=== PATIENT | female | born 1950 | race Caucasian/White ===

== ENCOUNTER 2024-10-24 11:05 | Outpatient (AMB) | payer MEDICARE, SELFPAY ==
--- NOTE | 2024-10-24 11:06 | A.OFFPC_ITS ---
Vital Signs 10/24/24 11:17 10/24/24 11:41 Height 5 ft 5 in Weight 163 lb BMI 27.1 BP 143/70 H 120/66 Blood Pressure Location Rt brachial Rt brachial Position Sitting Sitting Respiration 16 Pulse 88 Pulse Source Pulse Oximeter Temp 98.0 F Temp Source Oral Pulse Oximetry (%) 98 Oxygen Delivery Method Room Air Intake Visit Reasons: Est. Care Intake Note: patient here for new patient visit Turkish Rubber Required: No Is last menstrual period known: No Post menopausal: No Patient : No Allergies No Known Allergies Allergy (Verified 10/24/24 11:33) Medication List - Last Reconciled 10/24/24 by Miles Vigil CNP amlodipine 10 mg PO DAILY levothyroxine 100 mcg PO DAILY lisinopril 20 mg PO DAILY Tobacco use date assessed: 10/24/24 Fall risk assessment: No Falls in past year Last assessed Fall Risk: 10/24/24 Dental Screening Dental Screen Date: 10/24/24 Did you have a dental visit in the last 12 months?: Yes Did you have a dental problem in the last 6 months where you did not have access to dental care?: No Was dental information given to patient?: Patient has dentist HPI HPI Comments History of Present Illness Details 74-year-old female presents to [facility]. Relocated to [facility] from [place] in 04/23/2024. Prior PCP? - Yesy Torres [place] Last office visit/CPE/labs - 03/2024 Acute issue(s) - Hypertension: She is on amlodipine 10 mg daily and lisinopril 20 mg daily. - Hypothyroidism: She is on levothyroxi ne 100 mcg daily. - Vitamin B 12 deficiency: She is on a l ow dose otc vitamin B 12 supplement. - OA both knees: Reports occasional stif fness to both knees upon waking up in the morning and improves during the day. She also experiences occasional right knee pain. - Heart murmur: She was followed by Car diology until she moved out to [place] over 10 years ago. Declines cardiology referral at this time. - Presbyopia: She ears bifocal glasses Past Medical History - Hypertension, hypothyroidism, heart mu rmur, fatty liver, osteoarthritis both knees, presbyopia, leukopenia (white count of 3 or below), vitamin B 12 deficiency Surgical History - Appendectomy Family History - Dad: Hyperlipidemia - MGM: Hyperlipidemia, diabetes Social History - Nonsmoker. Does not vape. Does not dri nk alcohol. Denies recreational drug use - Has been making healthy dietary choice s. Walks routinely. Generally sleep well Health maintenance - Last eye exam was a year ago in [place]. Re ferred to Ophthalmology for routine eye care - Last dental visit was in 03/2024 - Last tetanus vaccine was more than 10 years ago; received Tdap vaccine today - She notes that she is up-to-date on shingles vaccines. Immunization record not available. She will obtain her immunization record from [facility] for her PCP to review - She is unsure whether she was vaccinat ed for pneumonia. Will review her immunization record when available - She notes that she is vaccinated for t he flu - Last pap smear test was over 10 years ago: normal. She no longer performs pap smear test - Last mammogram was a year and half ago : normal. Mammogram ordered - Last colonoscopy was over 10 years ago : normal. She no longer performs colonoscopy and has been doing Cologuard test instead. Last Cologuard test was a year and half ago: normal. Will review record once available - Last dexa scan was almost a year ago: normal. Will review her record once available [facility] Medical History (Updated 10/24/24 @ 12:25 by Miles Vigil CNP) Fatty liver Arthritis of both knees H/O thyroid disease High blood pressure Surgical History (Updated 10/24/24 @ 12:29 by Miles Vigil CNP) History of appendectomy Family History (Updated 10/24/24 @ 11:25 by Alexus Mejia MA) Father High cholesterol Mother High cholesterol Diabetes Social History Housing: House Patient Tobacco Use Status: Never used Tobacco e-Cigarette/Vaping Use: Never Used Second Hand Smoke Exposure: No service: No Current occupational status: retired Current occupational exposures/hazards: No Cognitive needs: No Hearing needs: No Vision needs: Yes Questionnaire PHQ-9 Over the last 2 weeks, how often have you been bothered by any of the following problems? 1. Little interest or pleasure in doing things: not at all 2. Feeling down, depressed, or hopeless: not at all 3. Trouble falling or staying asleep, or sleeping too much: not at all 4. Feeling tired or having little energy: not at all 5. Poor appetite or overeating: not at all 6. Feeling bad about yourself - or that you are a failure or have let yourself or your family down: not at all 7. Trouble concentrating on things, such as reading the newspaper or watching television: not at all 8. Moving or speaking so slowly that other people could have noticed. Or the opposite - being so fidgety or restless that you have been moving around a lot more than usual: not at all 9. Thoughts that you would be better off or of hurting yourself in some way: not at all Total score: 0 Depression Screening Interpretation: Negative Depression Screening Done: Yes 85530 - PHQ-9 Billing: Yes Source: Developed by Drs. Sunday Santos, Whitney Lara, Ethan Walker and colleagues, with an educational nader from [employer]. Thrive Questionnaire Date Thrive assessed: 10/24/24 I am a: Patient What is your living situation today?: I have a steady place to live Within the past 12 months, did the food you bought not last and you didn't have the money to get more?: Never true Within the past 12 months, did you worry whether your food would run out before you got money to buy more?: Never true Do you have trouble paying for medicines?: No Do you have trouble getting transportation to medical appointments?: No Do you have trouble paying your heating and electricity bill?: No Do you have trouble taking care of your child, family member or friend?: No Do you have trouble with day-to-day activities such as bathing, preparing meals, shopping, managing finances, etc.?: No Are you currently unemployed and looking for a job?: No Are you interested in more education?: No Please select the resources that you would like help with: None Currently or been in a relationship where the following occur: No concerns reported THRIVE Score: 0 AUDIT C Alcohol Use Questionnaire (AUDIT-C) 1. How often do you have a drink containing alcohol?: Never 3. How often do you have six or more drinks on one occasion?: Never Total Score: 0 Score Reviewed/Action Taken: Yes PILO-7 AMB Questionnaire PILO-7 Date PILO - 7 assessed: 03/18/25 Feeling nervous, anxious, or on edge: 0 = Not at all Not being able to stop or control worryin = Not at all Worrying too much about different things: 3 = Nearly every day Trouble relaxin = Not at all Being so restless that it is hard to sit still: 0 = Not at all Becoming easily annoyed or irritable: 0 = Not at all Feeling afraid as if something awful might happen: 3 = Nearly every day Total PILO-7 score (0-4 normal; 5-9 mild; 10-14 moderate; 15-21 severe): 6 Source: Developed by Drs. Sunday Santos, Whitney Lara, Ethan Walker and colleagues, with an educational nader from [employer]. PILO-7 Assessment Billing PILO-7 Assessment Tool: PILO-7 Assessment 20518 Review of Systems Const Details: Const Denies chills, Denies fatigue, Denies fever(s), Denies headache(s) and Denies weakness ENT Denies dizziness and Denies headache(s) Card Denies chest pain, Denies lightheadedness, Denies dyspnea and Denies other (Palpitations) Resp Denies cough, Denies dyspnea, Denies wheezing and Denies other ( shortness of breath) GI Denies abdominal pain, Denies melena, Denies hematochezia, Denies change in bowel habits, Denies dyspepsia and Denies nausea Denies hematuria and Denies dysuria Musc Denies abnormal gait, Denies myalgias, Denies arthralgias, Denies numbness and Denies tingling Skin/Breast Denies rash, Denies unusual bruising and Denies wounds Neuro Denies abnormal gait, Denies dizziness, Denies headache(s), Denies memory loss, Denies numbness, Denies Sensory deficit (Neuro), Denies tingling and Denies weakness Psych Denies anxiety, Denies depression, Denies memory loss Endo Denies cold intolerance, Denies fatigue, Denies heat intolerance, Denies polydipsia and Denies polyuria Aller/Immun Denies wheezing Physical exam (Primary Care) Vital Signs: Last Vital Signs Temp 98.0 F 10/24/24 11:17 Pulse 88 10/24/24 11:17 Resp 16 10/24/24 11:17 BP 120/66 10/24/24 11:41 Pulse Ox 98 10/24/24 11:17 Oxygen Delivery Method Room Air 10/24/24 11:17 BMI result Body Mass Index 27.1 Tobacco/Smoking Status: Tobacco use Status Tobacco use date assessed 10/24/24 10/24/24 11:16 Patient Tobacco Use Status Never used Tobacco 10/24/24 11:16 e-Cigarette/Vaping Use Never Used 10/24/24 11:16 PHQ-9: PHQ-9 Score PHQ-9: Total score 0 10/24/24 12:18 Depression Screening Interpretation: Negative Thrive Assessment: Date of Thrive Assessment Date Thrive assessed 10/24/24 10/24/24 11:28 Currently or been in a relationship where the following occur: No concerns reported Const Other: General: no acute distress and well developed Nutritional Appearance: well nourished Orientation/consciousness: patient oriented x3 HENMT Head: Yes normocephalic and Yes atraumatic Eyes General: appearance normal, both eyes and all related structures Pupils: Equal, round and reactive pupils present EOM: EOMs intact bilaterally Resp Effort & Inspection: normal respiratory effort Auscultation: clear to auscultation bilaterally Cardio Rate: regular rate Rhythm: regular rhythm Heart sounds: S1 normal heart sound present, S2 normal heart sound present, no gallops, + murmurs and no rubs GI Palpation (GI): No Abdominal aortic bruit present, Soft to palpation, nontender, No hepatosplenomegaly present and No Rebound tenderness present Auscultation: normal bowel sounds General: Yes no CVA tenderness Back/Spine/Pelvis Back: no CVA tenderness Cervical Spine: cervical ROM normal and No Cervical spine tenderness Thoracic/Lumbar Spine: thoraco-lumbar ROM normal, No pain with thoraco-lumbar ROM, No thoracic spinal tenderness and No lumbar spinal tenderness Extrem General: Yes normal to inspection, No edema and No calf tenderness Skin General: warm and dry. Normal skin color. Normal skin turgor Lesions: no lesions Rashes: no rashes Trauma: no lacerations or abrasions Wounds: no wounds Nails: normal Neuro General: patient oriented x3, gait normal and no focal neuro deficit Cranial nerves: Yes Equal, round and reactive pupils present Cognition (Neuro): normal cognition Gait exam (Neuro): Normal gait present Sensory Exam: No Sensory deficit (Neuro) Psych Appearance: grossly normal Affect: normal affect Attitude: cooperative Thought process: Normal thought process present Immunizations Boostrix Tdap 2.5 Lf unit-8 mcg-5 Lf/0.5 mL intramuscular syringe Performing Provider: Miles Vigil CNP [place] [facility] Administered by: LEIDA Blair on 10/24/24 12:18 Dose Route Admin Location Dispensed Lot Number Expiration Date [place] Licensed Final Expense Agents 0.5 mL IM Right Deltoid 0.5 mL [id number] 11/25/26 [id number] [employer] VIS Given Date VIS Provided VIS Publication Date 10/24/24 Single Vaccine 21 Eligibility Eligibility Date Funding Source Not [facility] Eligible 10/24/24 Private Coding Level of Care Code New Pt Level 4 (00334) Diagnoses High blood pressure I10 Hypothyroidism E03.9 Arthritis of both knees M17.0 Heart murmur R01.1 Vitamin B12 deficiency E53.8 Leukopenia D72.819 Presbyopia H52.4 Breast cancer screening by mammogram Z12.31 Laboratory tests ordered as part of a complete physical exam (CPE) Z00.00 Additional Codes PILO-7 Assessment Billing - PILO-7 Assessment Tool: PILO-7 Assessment 54115 ([id number]) PHQ-9 - 25954 - PHQ-9 Billing: Yes ([id number]) Assessment & Plan Assessment & Plan (1) High blood pressure: Code(s): I10 - Essential (primary) hypertension Category: Medical Plan: Resting blood pressure is 120/66, within goal of less than 140/90. Continue current treatment regimen. Low-sodium diet encouraged. Follow-up in 1 month for hypertension and labs review or sooner with symptoms or concerns. Verbalized understanding and agreed with treatment plan. (2) Hypothyroidism: Code(s): E03.9 - Hypothyroidism, unspecified Category: Medical Plan: Continue to take levothyroxine 100 mcg daily. Will check TSH/T4 and make changes as needed. Verbalized understanding and agreed with treatment plan. (3) Arthritis of both knees: Code(s): M17.0 - Bilateral primary osteoarthritis of knee Category: Medical Plan: She has been experiencing occasional stiffness to both knees upon waking up in the morning and improves during the day. She also experiences occasional right knee pain. Stretching encouraged upon waking up in the morning. May take Tylenol ibuprofen as needed for pain or discomfort. Warm/cool compresses encouraged. Follow-up with worsening or new symptoms. Verbalized understanding and agreed with treatment plan. (4) Heart murmur: Code(s): R01.1 - Cardiac murmur, unspecified Category: Medical Plan: She was followed by Cardiology until she moved out to [place] over 10 years ago. Positive murmurs wit auscultation. Declines cardiology referral at this time. Will continue to monitor. (5) Vitamin B12 deficiency: Code(s): E53.8 - Deficiency of other specified B group vitamins Category: Medical Plan: History of vitamin B12 deficiency on OTC vitamin B12. Continue current treatment regimen. Will check vitamin B12 and make changes as needed. Verbalized understanding and agreed with treatment plan. (6) Leukopenia: Code(s): D72.819 - Decreased white blood cell count, unspecified Category: Medical Plan: History of leukopenia. Likely due to vitamin B12 deficiency. Continue to take vitamin B12 supplement. Will check labs and make changes as needed. Verbalized understanding and agreed with the plan. (7) Presbyopia: Code(s): H52.4 - Presbyopia Category: Medical Plan: She wears prescription glasses. Last eye exam was a year ago in [place]. Referred to Ophthalmology for routine eye care. (8) Breast cancer screening by mammogram: Code(s): Z12.31 - Encounter for screening mammogram for malignant neoplasm of breast Category: Medical Plan: Last mammogram was a year and half ago: normal. Mammogram ordered. (9) Laboratory tests ordered as part of a complete physical exam (CPE): Code(s): Z00.00 - Encounter for general adult medical examination without abnormal findings Category: Medical Plan: Fasting labs ordered as part of a complete physical exam. Advised to fast for at least 10 hours before getting labs drawn. May drink water Verbalized understanding and agreed with treatment plan. Orders: Orders TDaP Immunization Today Z23 - Encounter for immunization MM screening mammo BI Today Z12.31 - Encounter for screening mammogram for malignant neoplasm of breast Complete Blood Count Auto Diff Today Z00.00 - Encounter for general adult medical examination without abnormal findings Lipid Panel Today Z00.00 - Encounter for general adult medical examination without abnormal findings Microalbumin, Random (w Creat) Today Z00.00 - Encounter for general adult medical examination without abnormal findings Vitamin D 25-OH Total Today Z00.00 - Encounter for general adult medical examination without abnormal findings Comprehensive [place]. Panel Fast Today Z00.00 - Encounter for general adult medical examination without abnormal findings TSH reflex Free T4 Today Z00.00 - Encounter for general adult medical examination without abnormal findings UA CC w/rflx Micro + Cult Today Z00.00 - Encounter for general adult medical examination without abnormal findings Vitamin B12 and Folate Today E53.8 - Deficiency of other specified B group v itamins Referrals Ophthalmology Referral H52.4 - Presbyopia
[2024-10-24 11:17] VITALS: BP 143/70; PULSE 88; RESP 16; TEMP 36.7; O2SAT 98; BMI 27.1
[2024-10-24 11:41] VITALS: BP 120/66
== END 2024-10-24 12:17 | disposition home or self-care (01) ==
LOC: HO.HMCFM 11:05
PROVIDERS: PCP Nurse Practitioner Family; Visit Provider Nurse Practitioner Family
DX: I10 Essential (primary) hypertension (principal); E03.9 Hypothyroidism, unspecified; M17.0 Bilateral primary osteoarthritis of knee; R01.1 Cardiac murmur, unspecified; E53.8 Deficiency of other specified B group vitamins; D72.819 Decreased white blood cell count, unspecified; H52.4 Presbyopia; Z12.31 Encounter for screening mammogram for malignant neoplasm of breast; Z00.00 Encounter for general adult medical examination without abnormal findings; Z23 Encounter for immunization

== ENCOUNTER → 2024-10-24 11:05 | Outpatient (BNVA) | payer MEDICARE, SELFPAY | PROVIDERS: PCP Nurse Practitioner Family; Visit Provider Nurse Practitioner Family | DX: Z23 Encounter for immunization (principal); I10 Essential (primary) hypertension; E03.9 Hypothyroidism, unspecified; M17.0 Bilateral primary osteoarthritis of knee; R01.1 Cardiac murmur, unspecified; E53.8 Deficiency of other specified B group vitamins; D72.819 Decreased white blood cell count, unspecified; H52.4 Presbyopia | CPT/HCPCS: 90471; 90715; 96127; 99202 ==

== ENCOUNTER 2024-11-20 09:59 | Outpatient (REF) | payer MEDICARE, SELFPAY ==
[2024-11-20 11:42] LABS: Basophils Percent Auto 1.1 % (0-2); Eosinophils Absolute Auto 0.1 X10*3/uL (0.0-0.4); Eosinophils Percent Auto 4.5 % (0-4); Hematocrit 39.4 % (37.0-47.0); Hemoglobin 13.3 g/dl (12.0-16.0); Lymphocytes Absolute Auto 0.8 X10*3/uL (1.2-4.9); Lymphocytes Percent Auto 46.4 % (20-40); MANUAL DIFF FLAG SCAN; Mean Corpuscular HGB Conc 33.8 g/dl (31.0-35.0); Mean Corpuscular Hemoglobin 31.1 pg (27.0-33.0); Mean Corpuscular Volume 92.1 fL (80.0-98.0); Monocytes Absolute Auto 0.2 X10*3/uL (0.1-1.2); Monocytes Percent Auto 11.7 % (2-11); Neutrophils Absolute Auto 0.7 x10*3/uL (2.0-8.3); Neutrophils Percent Auto 36.3 % (45-73); Red Blood Count 4.28 X10*6/uL (4.20-5.50); SCAN SMEAR FLAG 1
[2024-11-20 11:45] LABS: White Blood Count 1.8 X10*3/uL (4.8-10.8)
[2024-11-20 11:46] LABS: Appearance Urine Clear; Color Urine Yellow; Glucose Urine UA Negative (Negative); Leukocyte Esterase Urine Moderate (2+) (Negative); Nitrite Urine Negative (Negative); PH 5.5 (5.0-9.0); Specific Gravity - Urine 1.015 (1.005-1.025); UMIC TRIGGER UACC YES; Urine Blood Negative (Negative); Urine Ketones Negative (Negative); Urine Protein Negative (Neg-Trace)
[2024-11-20 11:54] LABS: Bacteria Urine None Seen (None Seen); Hyaline Casts Urine 0-2 /LPF (0-2); RBC Urine 0-2 /HPF (0-2); Squamous Epithelial Cell Urine 0-2 /HPF (0-2); UACC Culture Trigger YES; WBC Urine 21-50 /HPF (0-5)
[2024-11-20 12:18] LABS: Alanine Aminotransferase 159 U/L (0-31); Albumin Level 3.8 g/dL (3.5-5.0); Anion Gap 11 (12-20); Aspartate Amino Transferase 123 U/L (5-31); Bilirubin Total 0.6 mg/dL (0.0-1.0); Blood Urea Nitrogen 22 mg/dL (9-16); Calcium 10.3 mg/dL (8.4-10.2); Carbon Dioxide 24 mmol/L (22-29); Chloride 110 mmol/L (96-108); Cholesterol 181 mg/dL (<200); Estimated Glomerular Filt Rate > 60; Glucose Fasting 82 mg/dL (60-99); HDL Cholesterol 54 mg/dL (>40); LDL Cholesterol Calculated 112 mg/dL (<100); Potassium 4.2 mmol/L (3.3-5.1); Sodium 141 mmol/L (135-145); Total Protein 8.3 g/dL (6.5-8.0); Triglycerides 79 mg/dL (<150)
[2024-11-20 12:20] LABS: Creatinine Urine 81.78 mg/dL; Microalbum/Creatinine Ratio Ur 46.4 ug/mg cr (<30)
[2024-11-20 12:27] LABS: Platelet Count 87 X10*3/uL (160-400)
[2024-11-20 12:28] LABS: Mean Platelet Volume 12.6 fL (9.4-12.3)
[2024-11-20 12:29] LABS: SLIDE REVIEW VERIFIED
[2024-11-20 12:37] LABS: Alkaline Phosphatase 161 U/L (39-117)
[2024-11-20 12:39] LABS: TSH reflex Free T4 3.72 uIU/mL (0.32-4.0); Vitamin D 25-OH Total 23.5 ng/mL (>30)
[2024-11-20 12:47] LABS: Folate 16.1 ng/mL (> or = 4.0); Vitamin B12 1287 pg/mL (200-900)
== END 2024-11-20 10:00 | disposition home or self-care (01) ==
LOC: HO.WFDLDS 09:59
PROVIDERS: Visit Provider Nurse Practitioner Family
DX: Z00.00 Encounter for general adult medical examination without abnormal findings (principal); E53.8 Deficiency of other specified B group vitamins; R82.90 Unspecified abnormal findings in urine
CPT/HCPCS: 36415; 80053; 80061; 81001; 82043; 82306; 82570; 82607; 82746; 84443; 85025; 87086

== ENCOUNTER 2024-11-30 09:31 | Outpatient (REF) | payer MEDICARE, SELFPAY ==
[2024-11-30 11:36] LABS: Hematocrit 38.4 % (37.0-47.0); Mean Corpuscular HGB Conc 33.9 g/dl (31.0-35.0); Mean Corpuscular Hemoglobin 30.5 pg (27.0-33.0); Mean Corpuscular Volume 90.1 fL (80.0-98.0); Mean Platelet Volume 13.1 fL (9.4-12.3); Platelet Count 83 X10*3/uL (160-400); Red Blood Count 4.26 X10*6/uL (4.20-5.50); White Blood Count 2.1 X10*3/uL (4.8-10.8)
== END 2024-11-30 09:32 ==
LOC: HO.WFDLDS 09:31
PROVIDERS: Visit Provider Nurse Practitioner Family
DX: D69.6 Thrombocytopenia, unspecified (principal); D72.819 Decreased white blood cell count, unspecified
CPT/HCPCS: 36415; 85027

== ENCOUNTER 2024-12-05 10:33 | Outpatient (AMB) | payer MEDICARE, SELFPAY ==
--- NOTE | 2024-12-05 10:35 | A.OFFPC_ITS ---
Vital Signs 12/05/24 10:39 12/05/24 11:08 Height 5 ft 5 in Weight 166 lb 4 oz BMI 27.7 BP 144/67 H 116/66 Blood Pressure Location Rt brachial Rt brachial Position Sitting Sitting Respiration 20 Pulse 85 Pulse Source Pulse Oximeter Temp 98.2 F Temp Source Oral Pulse Oximetry (%) 98 Oxygen Delivery Method Room Air Intake Visit Reasons: 1 mos HTN, labs review Intake Note: patient here for 1 month follow up on HTN and lab review [employer] Required: No Is last menstrual period known: No Post menopausal: No Patient : No Allergies No Known Allergies Allergy (Verified 12/05/24 10:54) Medication List - Last Reconciled 12/05/24 by Miles Vigil CNP amlodipine 10 mg PO DAILY levothyroxine 100 mcg PO DAILY lisinopril 20 mg PO DAILY Tobacco use date assessed: 12/05/24 Fall risk assessment: No Falls in past year Last assessed Fall Risk: 12/05/24 Dental Screening Dental Screen Date: 12/05/24 Did you have a dental visit in the last 12 months?: Yes Did you have a dental problem in the last 6 months where you did not have access to dental care?: No Was dental information given to patient?: Patient has dentist HPI HPI Comments History of Present Illness Details 74-year-old female presents for hyperten tyra and review of recent lab results follow-up. She admits to taking her medications as prescribed without adverse reactions. She offers no complaints and denies acute symptoms at this time. [facility] Medical History (Updated 12/05/24 @ 11:16 by Miles Vigil CNP) Fatty liver Arthritis of both knees H/O thyroid disease High blood pressure Surgical History (Updated 10/26/24 @ 16:27 by Carolin Johns) History of appendectomy Family History (System 10/26/24 @ 16:27 by Carolin Johns) Father High cholesterol Mother High cholesterol Diabetes Social History (System 10/26/24 @ 16:27 by Carolin Johns) Housing: House Patient Tobacco Use Status: Never used Tobacco e-Cigarette/Vaping Use: Never Used Second Hand Smoke Exposure: No Patient : No service: No Current occupational status: retired Current occupational exposures/hazards: No Cognitive needs: No Hearing needs: No Vision needs: Yes Questionnaire Thrive Questionnaire Date Thrive assessed: 10/24/24 PILO-7 AMB Questionnaire PILO-7 Date PILO - 7 assessed: 10/24/24 Source: Developed by Drs. Sunday Santos, Whitney Lara, Ethan Walker and colleagues, with an educational nader from [employer]. Review of Systems Const Details: Const Denies chills, Denies fatigue, Denies fever(s), Denies headache(s) and Denies weakness ENT Denies dizziness and Denies headache(s) Card Denies chest pain, Denies lightheadedness, Denies dyspnea and Denies other (Palpitations) Resp Denies cough, Denies dyspnea, Denies wheezing and Denies other ( shortness of breath) GI Denies abdominal pain, Denies melena, Denies hematochezia, Denies change in bowel habits, Denies dyspepsia and Denies nausea Denies hematuria and Denies dysuria Musc Denies abnormal gait, Denies myalgias, Denies arthralgias, Denies numbness and Denies tingling Skin/Breast Denies rash, Denies unusual bruising and Denies wounds Neuro Denies abnormal gait, Denies dizziness, Denies headache(s), Denies memory loss, Denies numbness, Denies Sensory deficit (Neuro), Denies tingling and Denies weakness Psych Denies anxiety, Denies depression, Denies memory loss Endo Denies cold intolerance, Denies fatigue, Denies heat intolerance, Denies polydipsia and Denies polyuria Aller/Immun Denies wheezing Physical exam (Primary Care) Vital Signs: Last Vital Signs Temp 98.2 F 12/05/24 10:39 Pulse 85 12/05/24 10:39 Resp 20 12/05/24 10:39 BP 144/67 H 12/05/24 10:39 Pulse Ox 98 12/05/24 10:39 Oxygen Delivery Method Room Air 12/05/24 10:39 BMI result Body Mass Index 27.7 Tobacco/Smoking Status: Tobacco use Status Tobacco use date assessed 12/05/24 12/05/24 10:42 Patient Tobacco Use Status Never used Tobacco 12/05/24 10:35 e-Cigarette/Vaping Use Never Used 12/05/24 10:35 Thrive Assessment: Date of Thrive Assessment Date Thrive assessed 10/24/24 12/05/24 10:35 Const Other: General: no acute distress and well developed Nutritional Appearance: well nourished Orientation/consciousness: patient oriented x3 [facility] Head: Yes normocephalic and Yes atraumatic Eyes General: appearance normal, both eyes and all related structures Pupils: Equal, round and reactive pupils present EOM: EOMs intact bilaterally Resp Effort & Inspection: normal respiratory effort Auscultation: clear to auscultation bilaterally Cardio Rate: regular rate Rhythm: regular rhythm Heart sounds: S1 normal heart sound present, S2 normal heart sound present, no gallops, no murmurs and no rubs GI Palpation (GI): No Abdominal aortic bruit present, Soft to palpation, nontender, No hepatosplenomegaly present and No Rebound tenderness present Auscultation: normal bowel sounds General: Yes no CVA tenderness Back/Spine/Pelvis Back: no CVA tenderness Cervical Spine: cervical ROM normal and No Cervical spine tenderness Thoracic/Lumbar Spine: thoraco-lumbar ROM normal, No pain with thoraco-lumbar ROM, No thoracic spinal tenderness and No lumbar spinal tenderness Extrem General: Yes normal to inspection, No edema and No calf tenderness Skin General: warm and dry. Normal skin color. Normal skin turgor Neuro General: patient oriented x3, gait normal and no focal neuro deficit Cranial nerves: Yes Equal, round and reactive pupils present Cognition (Neuro): normal cognition Gait exam (Neuro): Normal gait present Sensory Exam: No Sensory deficit (Neuro) Psych Appearance: grossly normal Affect: normal affect Attitude: cooperative Thought process: Normal thought process present Coding Level of Care Code Est Pt Level 4 (50364) Diagnoses High blood pressure I10 Leukopenia D72.819 Thrombocytopenia D69.6 Elevated LDL cholesterol level E78.00 Vitamin D deficiency E55.9 Microalbuminuria R80.9 Fatty liver K76.0 Assessment & Plan Assessment & Plan (1) High blood pressure: Code(s): I10 - Essential (primary) hypertension Category: Medical Plan: Resting blood pressure is 116/66, within goal of less than 130/80. Continue current treatment regimen. Low-sodium diet encouraged. Follow-up in 2 months or sooner with symptoms or concerns. Verbalized understanding and agreed with the plan. (2) Leukopenia: Code(s): D72.819 - Decreased white blood cell count, unspecified Category: Medical Plan: Recent WBC is 2.1. She has history of leukopenia and has never been evaluated by Hematology/Oncology. Urgent referral made to [facility] hematology/oncology. (3) Thrombocytopenia: Code(s): D69.6 - Thrombocytopenia, unspecified Category: Medical Plan: Recent platelet count is 83. Plan as above. (4) Elevated LDL cholesterol level: Code(s): E78.00 - Pure hypercholesterolemia, unspecified Category: Medical Plan: Recent LDL level is slightly elevated, 112. Triglycerides, total cholesterol, and HDL levels are normal. Advised to limit foods high in saturated fat and avoid foods high in trans fat. Routine exercise encouraged. Will monitor lipid panel level annually or sooner with related symptoms or concerns. Verbalized understanding and agreed with the plan. (5) Vitamin D deficiency: Code(s): E55.9 - Vitamin D deficiency, unspecified Category: Medical Plan: Recent vitamin-D level is low, 23.5. Vitamin D3 25 mcg daily ordered; advised to take as prescribed. Will recheck vitamin D level in 2 months. Verbalized understanding and agreed with the plan. (6) Microalbuminuria: Code(s): R80.9 - Proteinuria, unspecified Category: Medical Plan: Recent urine microalbumin/creatinine ratio is slightly elevated, 46.4. Likely dehydration. Adequate hydration encouraged. Will recheck urine microalbumin/creatinine ratio make changes as needed. Verbalized understanding and agreed with the plan. (7) Fatty liver: Code(s): K76.0 - Fatty (change of) liver, not elsewhere classified Category: Medical Plan: Recent AST, ALT, and alkaline phosphate levels are elevated, 123, 159, and 161 respectively. She has history of hepatic steatosis. Healthy diet including low-fat encouraged. Liver ultrasound ordered. Referred to [facility] Gastroenterology. Follow-up with symptoms or concerns. Verbalized understanding and agreed with the plan. Orders: Orders Vitamin D 25-OH Total 2 Months E55.9 - Vitamin D deficiency, unspecified Microalbumin, Random (w Creat) 2 Months R80.9 - Proteinuria, unspecified US abdomen limited Today K76.0 - Fatty (change of) liver, not elsewhere classified Referrals Hematology & Oncology Referral D69.6 - Thrombocytopenia, unspecified, D72.819 - Decreased white blood cell count, unspecified Gastroenterology Referral K76.0 - Fatty (change of) liver, not elsewhere classified Medications: New cholecalciferol (vitamin D3) 25 mcg PO DAILY 90 days 90 tabs 1RF Changed From lisinopril 20 mg PO DAILY To lisinopril 20 mg PO DAILY 90 days 90 tabs 1RF
[2024-12-05 10:39] VITALS: BP 144/67; PULSE 85; RESP 20; TEMP 36.8; O2SAT 98; BMI 27.7
[2024-12-05 11:08] VITALS: BP 116/66
== END 2024-12-05 11:19 | disposition home or self-care (01) ==
LOC: HO.HMCFM 10:33
PROVIDERS: PCP Nurse Practitioner Family; Visit Provider Nurse Practitioner Family
DX: I10 Essential (primary) hypertension (principal); D72.819 Decreased white blood cell count, unspecified; D69.6 Thrombocytopenia, unspecified; E78.00 Pure hypercholesterolemia, unspecified; E55.9 Vitamin D deficiency, unspecified; R80.9 Proteinuria, unspecified; K76.0 Fatty (change of) liver, not elsewhere classified

== ENCOUNTER → 2024-12-05 10:33 | Outpatient (BNVA) | payer MEDICARE, SELFPAY | PROVIDERS: PCP Nurse Practitioner Family; Visit Provider Nurse Practitioner Family | DX: I10 Essential (primary) hypertension (principal); D72.819 Decreased white blood cell count, unspecified; D69.6 Thrombocytopenia, unspecified; E78.00 Pure hypercholesterolemia, unspecified; E55.9 Vitamin D deficiency, unspecified; R80.9 Proteinuria, unspecified; K76.0 Fatty (change of) liver, not elsewhere classified | CPT/HCPCS: 99212 ==

== ENCOUNTER → 2024-12-22 11:23 | Outpatient (BNV) | payer MEDICARE, SELFPAY | PROVIDERS: PCP Nurse Practitioner Family; Referring Provider Nurse Practitioner Family; Visit Provider Internal Medicine | DX: D72.819 Decreased white blood cell count, unspecified (principal) | CPT/HCPCS: 99204; G2211 ==

== ENCOUNTER 2025-02-27 12:54 | Outpatient (AMB) | payer MEDICARE, SELFPAY ==
--- NOTE | 2025-02-27 12:56 | A.OFFPC_ITS ---
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 Required: No Is last menstrual period known: No Post menopausal: No Patient : No Allergies No Known Allergies Allergy (Verified 02/27/25 13:19) Medication List - Last Reconciled 02/27/25 by Miles Vigil CNP amlodipine 10 mg PO DAILY cholecalciferol (vitamin D3) 25 mcg PO DAILY 90 days levothyroxine 100 mcg PO DAILY lisinopril 20 mg PO DAILY 90 days [id number]-vit K-lut 8 mg iron-400 mcg-50 mcg (Centrum Silver Women) 50 tabs PO DAILY Tobacco use date assessed: 02/27/25 Fall risk assessment: No Falls in past year Last assessed Fall Risk: 02/27/25 Dental Screening Dental Screen Date: 02/27/25 Did you have a dental visit in the last 12 months?: Yes Did you have a dental problem in the last 6 months where you did not have access to dental care?: No Was dental information given to patient?: Patient has dentist HPI HPI Comments History of Present Illness Details 74-year-old female presents for hyperten tyra and recent labs review follow-up. She admits to taking her medications as prescribed without adverse reactions. She offers no complaints and denies acute symptoms at this time. She is going out of state next month to spend time with family and will be back in late April. She did not get vitamin-D and urine microalbumin lab work done for this visit as planned. She plans to get lab work done at the end of this visit. [facility] Medical History Fatty liver Arthritis of both knees H/O thyroid disease High blood pressure Surgical History History of appendectomy Family History Father High cholesterol Mother High cholesterol Diabetes Social History Housing: House Patient Tobacco Use Status: Never used Tobacco e-Cigarette/Vaping Use: Never Used Second Hand Smoke Exposure: No service: No Current occupational status: retired Current occupational exposures/hazards: No Cognitive needs: No Hearing needs: No Vision needs: Yes Questionnaire PHQ-9 Over the last 2 weeks, how often have you been bothered by any of the following problems? 1. Little interest or pleasure in doing things: not at all 2. Feeling down, depressed, or hopeless: not at all 3. Trouble falling or staying asleep, or sleeping too much: not at all 4. Feeling tired or having little energy: not at all 5. Poor appetite or overeating: not at all 6. Feeling bad about yourself - or that you are a failure or have let yourself or your family down: not at all 7. Trouble concentrating on things, such as reading the newspaper or watching television: not at all 8. Moving or speaking so slowly that other people could have noticed. Or the opposite - being so fidgety or restless that you have been moving around a lot more than usual: not at all 9. Thoughts that you would be better off or of hurting yourself in some way: not at all Total score: 0 Depression Screening Interpretation: Negative Depression Screening Done: Yes Source: Developed by Drs. Sunday Santos, Whitney Lara, Ethan Walker and colleagues, with an educational nader from [employer]. Thrive Questionnaire Date Thrive assessed: 10/24/24 I am a: Patient What is your living situation today?: I have a steady place to live Within the past 12 months, did the food you bought not last and you didn't have the money to get more?: Never true Within the past 12 months, did you worry whether your food would run out before you got money to buy more?: Never true Do you have trouble paying for medicines?: No Do you have trouble getting transportation to medical appointments?: No Do you have trouble paying your heating and electricity bill?: No Do you have trouble taking care of your child, family member or friend?: No Do you have trouble with day-to-day activities such as bathing, preparing meals, shopping, managing finances, etc.?: No Are you currently unemployed and looking for a job?: No Are you interested in more education?: No Please select the resources that you would like help with: None Currently or been in a relationship where the following occur: No concerns reported THRIVE Score: 0 AUDIT C Alcohol Use Questionnaire (AUDIT-C) 1. How often do you have a drink containing alcohol?: Never Total Score: 0 Score Reviewed/Action Taken: Yes PILO-7 AMB Questionnaire PILO-7 Date PILO - 7 assessed: 10/24/24 Feeling nervous, anxious, or on edge: 0 = Not at all Not being able to stop or control worryin = Not at all Worrying too much about different things: 0 = Not at all Trouble relaxin = Not at all Being so restless that it is hard to sit still: 0 = Not at all Becoming easily annoyed or irritable: 0 = Not at all Feeling afraid as if something awful might happen: 0 = Not at all Total PILO-7 score (0-4 normal; 5-9 mild; 10-14 moderate; 15-21 severe): 0 Source: Developed by Drs. Sunday Santos, Whitney Lara, Ethan Walker and colleagues, with an educational nader from [employer]. Review of Systems Const Details: Const Denies chills, Denies fatigue, Denies fever(s), Denies headache(s) and Denies weakness ENT Denies dizziness and Denies headache(s) Card Denies chest pain, Denies lightheadedness, Denies dyspnea and Denies other (Palpitations) Resp Denies cough, Denies dyspnea, Denies wheezing and Denies other ( shortness of breath) GI Denies abdominal pain, Denies melena, Denies hematochezia, Denies change in bowel habits, Denies dyspepsia and Denies nausea Denies hematuria and Denies dysuria Musc Denies abnormal gait, Denies myalgias, Denies arthralgias, Denies numbness and Denies tingling Skin/Breast Denies rash, Denies unusual bruising and Denies wounds Neuro Denies abnormal gait, Denies dizziness, Denies headache(s), Denies memory loss, Denies numbness, Denies Sensory deficit (Neuro), Denies tingling and Denies weakness Psych Denies anxiety, Denies depression, Denies memory loss Endo Denies cold intolerance, Denies fatigue, Denies heat intolerance, Denies polydipsia and Denies polyuria Aller/Immun Denies wheezing Physical exam (Primary Care) Vital Signs: Last Vital Signs Temp 98.2 F 02/27/25 13:00 Pulse 82 02/27/25 13:00 Resp 16 02/27/25 13:00 BP 133/63 02/27/25 13:00 Pulse Ox 96 02/27/25 13:00 Oxygen Delivery Method Room Air 02/27/25 13:00 BMI result Body Mass Index 27.3 Tobacco/Smoking Status: Tobacco use Status Tobacco use date assessed 02/27/25 02/27/25 13:03 Patient Tobacco Use Status Never used Tobacco 02/27/25 13:03 e-Cigarette/Vaping Use Never Used 02/27/25 13:03 PHQ-9: PHQ-9 Score PHQ-9: Total score 0 02/27/25 13:03 Depression Screening Interpretation: Negative Thrive Assessment: Date of Thrive Assessment Date Thrive assessed 10/24/24 02/27/25 13:03 Currently or been in a relationship where the following occur: No concerns reported Const Other: General: no acute distress and well developed Nutritional Appearance: well nourished Orientation/consciousness: patient oriented x3 [facility] Head: Yes normocephalic and Yes atraumatic Eyes General: appearance normal, both eyes and all related structures Pupils: Equal, round and reactive pupils present EOM: EOMs intact bilaterally Resp Effort & Inspection: normal respiratory effort Auscultation: clear to auscultation bilaterally Cardio Rate: regular rate Rhythm: regular rhythm Heart sounds: S1 normal heart sound present, S2 normal heart sound present, no gallops, positive murmurs and no rubs GI Palpation (GI): No Abdominal aortic bruit present, Soft to palpation, nontender, No hepatosplenomegaly present and No Rebound tenderness present Auscultation: normal bowel sounds General: Yes no CVA tenderness Back/Spine/Pelvis Back: no CVA tenderness Cervical Spine: cervical ROM normal and No Cervical spine tenderness Thoracic/Lumbar Spine: thoraco-lumbar ROM normal, No pain with thoraco-lumbar ROM, No thoracic spinal tenderness and No lumbar spinal tenderness Extrem General: Yes normal to inspection, No edema and No calf tenderness Skin General: warm and dry. Normal skin color. Normal skin turgor Lesions: no lesions Rashes: no rashes Trauma: no lacerations or abrasions Wounds: no wounds Nails: normal Neuro General: patient oriented x3, gait normal and no focal neuro deficit Cranial nerves: Yes Equal, round and reactive pupils present Cognition (Neuro): normal cognition Gait exam (Neuro): Normal gait present Sensory Exam: No Sensory deficit (Neuro) Psych Appearance: grossly normal Affect: normal affect Attitude: cooperative Thought process: Normal thought process present Coding Level of Care Code Est Pt Level 3 (59713) Diagnoses High blood pressure I10 Assessment & Plan Assessment & Plan (1) High blood pressure: Code(s): I10 - Essential (primary) hypertension Category: Medical Plan: Resting blood pressure is 133/63, within goal of less than 130/80. Continue current treatment regimen. Low-sodium diet encouraged. She will get lab work done today. Will review results and make changes as needed. Follow-up in 3 for an extended physical exam. Return sooner with symptoms or concerns. Verbalized understanding and agreed with the plan.
[2025-02-27 13:00] VITALS: BP 133/63; PULSE 82; RESP 16; TEMP 36.8; O2SAT 96; BMI 27.3
== END 2025-02-27 13:29 | disposition home or self-care (01) ==
LOC: HO.HMCFM 12:55
PROVIDERS: PCP Nurse Practitioner Family; Visit Provider Nurse Practitioner Family
DX: I10 Essential (primary) hypertension (principal)

== ENCOUNTER → 2025-02-27 12:54 | Outpatient (BNVA) | payer MEDICARE, SELFPAY | PROVIDERS: PCP Nurse Practitioner Family; Visit Provider Nurse Practitioner Family | DX: I10 Essential (primary) hypertension (principal) | CPT/HCPCS: 96127; 99212 ==

== ENCOUNTER 2025-02-27 13:51 | Outpatient (REF) | payer MEDICARE, SELFPAY ==
[2025-02-27 18:12] LABS: Appearance Urine Clear; Glucose Urine UA Negative (Negative); PH 5.5 (5.0-9.0); Specific Gravity - Urine 1.020 (1.005-1.025); UMIC TRIGGER UACC YES
[2025-02-27 18:23] LABS: UACC Culture Trigger YES
[2025-02-27 18:35] LABS: Microalbum/Creatinine Ratio Ur 17.3 ug/mg cr (<30)
== END 2025-02-27 13:52 | disposition home or self-care (01) ==
LOC: HO.WFDLDS 13:51
PROVIDERS: Visit Provider Nurse Practitioner Family
DX: Z00.00 Encounter for general adult medical examination without abnormal findings (principal); E55.9 Vitamin D deficiency, unspecified; R80.9 Proteinuria, unspecified
CPT/HCPCS: 36415; 81001; 82043; 82306; 82570; 87086

== ENCOUNTER 2025-07-09 11:20 | Outpatient (AMB) | payer MEDICARE, SELFPAY ==
--- NOTE | 2025-07-09 11:23 | A.OFFVIS_ITS ---
Vital Signs 07/09/25 11:25 Height 5 ft 5 in Weight 156 lb 8.451 oz BMI 26.0 BP 161/80 H Blood Pressure Location Lt brachial Position Sitting Pulse 86 Intake Visit Reasons: fatty liver Intake Note: Whitney presents in the office as a new patient for fatty liver. CC: States that she has no symptoms or concerns. 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 She was diagnosed with fatty liver 8-10 years ago and was told at one point that it was on the verge of cirrhosis. The condition was previously managed by a primary care provider in [place], and the patient has not seen a liver specialist before. She reports minimal past alcohol consumption, stating one glass of wine a month previously, but has not had any in years. There is no personal history of hepatitis. The family history is negative for liver disease, liver cancer, iron overload, and autoimmune conditions such as lupus, Crohn's disease, or ulcerative colitis. She also sees hematology for leukopenia. An US Abd was ordered through their office which the pt canceled. 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 For colon cancer screening, had a colonoscopy many years ago which showed no polyps. She now prefers to do Cologuard test. The patient has no history of heart or lung issues and has never smoked. There is no family history of colon cancer. --- Pt was informed and consented to the use of ambient scribe for this encounter. --- [facility] Medical History Fatty liver Arthritis of both knees H/O thyroid disease High blood pressure Surgical History History of appendectomy Family History Father High cholesterol Mother High cholesterol Diabetes Social History Housing: House Patient Tobacco Use Status: Never used Tobacco e-Cigarette/Vaping Use: Never Used Second Hand Smoke Exposure: No service: No Current occupational status: retired Current occupational exposures/hazards: No Cognitive needs: No Hearing needs: No Vision needs: Yes Review of Systems Const All systems reviewed & are unremarkable except as noted in HPI and below Physical Exam Exam Exam: No apparent distress Nonicteric Abdomen soft, nondistended Alert and oriented x3, normal gait, no asterixis Vital Signs: Last Vital Signs Pulse 86 07/09/25 11:25 BP 161/80 H 07/09/25 11:25 BMI result Body Mass Index 26.0 Assessment & Plan Assessment & Plan (1) Transaminitis: Code(s): R74.01 - Elevation of levels of liver transaminase levels Category: Medical (2) Leukopenia: Code(s): D72.819 - Decreased white blood cell count, unspecified Category: Medical (3) Thrombocytopenia: Code(s): D69.6 - Thrombocytopenia, unspecified Category: Medical Plan 1. Nonalcoholic Fatty Liver Disease with Suspected Progression to Cirrhosis: History of fatty liverx 8-10 years and was previously told it was 'on the verge' of cirrhosis. Given underlying leukopenia & thrombocytopenia Im= concerned that this has now progressed to cirrhosis. PLan: - A comprehensive liver disease workup will be initiated, which includes ruling out other causes like viral hepatitis (Hepatitis B, C, HIV), autoimmune hepatitis iron overload etc. - US Abd - If cirrhosis confirmed pt will also need an EGD for variceal screening since platelet count <100k. - Discussed the importance of attending imaging and office appts. Recommend discussing additional home support services for the patient's with his PCP. Follow-up in 3 months Orders: Orders US abdomen complete Today D69.6 - Thrombocytopenia, unspecified, R74.01 - [place] tion of levels of liver transaminase levels Alpha Fetoprotein Today D69.6 - Thrombocytopenia, unspecified, R74.01 - Elevation of levels of liver transaminase levels Alpha 1 Anti-trypsin Today D69.6 - Thrombocytopenia, unspecified, R74.01 - Elevation of levels of liver transaminase levels PRIETO Reflex Titer and Pattern Today D69.6 - Thrombocytopenia, unspecified, R74.01 - Elevation of levels of liver transaminase levels Ferritin Today D69.6 - Thrombocytopenia, unspecified, R74.01 - Elevation of levels of liver transaminase levels Hepatitis B Core Antibody Today D69.6 - Thrombocytopenia, unspecified, R74.01 - Elevation of levels of liver transaminase levels Hepatitis B Surface Antigen Today D69.6 - Thrombocytopenia, unspecified, R74.01 - Elevation of levels of liver transaminase levels Hepatitis C Antibody Today D69.6 - Thrombocytopenia, unspecified, R74.01 - Elevation of levels of liver transaminase levels Immunoglobulin A Today D69.6 - Thrombocytopenia, unspecified, R74.01 - Elevation of levels of liver transaminase levels Immunoglobulin G Today D69.6 - Thrombocytopenia, unspecified, R74.01 - Elevation of levels of liver transaminase levels Liver Kidney Microsomal Ab Today D69.6 - Thrombocytopenia, unspecified, R74.01 - Elevation of levels of liver transaminase levels Phosphatidylethanol, Blood Today D69.6 - Thrombocytopenia, unspecified, R74.01 - Elevation of levels of liver transaminase levels Smooth Muscle Antibody Today D69.6 - Thrombocytopenia, unspecified, R74.01 - Elevation of levels of liver transaminase levels Transglutaminase IgA Today D69.6 - Thrombocytopenia, unspecified, R74.01 - Elevation of levels of liver transaminase levels TSH reflex Free T4 Today D69.6 - Thrombocytopenia, unspecified, R74.01 - Elevation of levels of liver transaminase levels Complete Blood Count no Diff Today D69.6 - Thrombocytopenia, unspecified, R74.01 - Elevation of levels of liver transaminase levels Comprehensive Met. Panel Today D69.6 - Thrombocytopenia, unspecified, R74.01 - Elevation of levels of liver transaminase levels Prothrombin Time INR Today D69.6 - Thrombocytopenia, unspecified, R74.01 - Elevation of levels of liver transaminase levels Ceruloplasmin Today D69.6 - Thrombocytopenia, unspecified, R74.01 - Elevation of levels of liver transaminase levels Hemoglobin A1c Today D69.6 - Thrombocytopenia, unspecified, R74.01 - Elevation of levels of liver transaminase levels Hepatitis A IgG Today D69.6 - Thrombocytopenia, unspecified, R74.01 - Elevation of levels of liver transaminase levels Hepatitis B Surface Antibody Today D69.6 - Thrombocytopenia, unspecified, R74.01 - Elevation of levels of liver transaminase levels HIV Ab/Ag Today D69.6 - Thrombocytopenia, unspecified, R74.01 - Elevation of levels of liver transaminase levels IRON PROFILE Today D69.6 - Thrombocytopenia, unspecified, R74.01 - Elevation of levels of liver transaminase levels Lipid Panel Today D69.6 - Thrombocytopenia, unspecified, R74.01 - Elevation of levels of liver transaminase levels Coding Level of Care Code New Pt Level 4 (16322) Diagnoses Transaminitis R74.01 Leukopenia D72.819 Thrombocytopenia D69.6
[2025-07-09 11:25] VITALS: BP 161/80; PULSE 86; BMI 26.0
== END 2025-07-09 12:09 | disposition home or self-care (01) ==
LOC: HO.HGI 11:20
PROVIDERS: PCP Nurse Practitioner Family; Visit Provider Internal Medicine
DX: R74.01 Elevation of levels of liver transaminase levels (principal); D72.819 Decreased white blood cell count, unspecified; D69.6 Thrombocytopenia, unspecified
CPT/HCPCS: 99204

== ENCOUNTER → 2025-07-09 11:20 | Outpatient (BNVA) | payer MEDICARE, SELFPAY | PROVIDERS: PCP Nurse Practitioner Family; Visit Provider Internal Medicine | DX: R74.01 Elevation of levels of liver transaminase levels (principal); D72.819 Decreased white blood cell count, unspecified; D69.6 Thrombocytopenia, unspecified | CPT/HCPCS: 99202 ==